=== PATIENT | male | born 1965 | race African-American/Black ===

== ENCOUNTER 2017-06-16 14:03 | Inpatient (IN) | payer SELFPAY ==
[~2017-06-16] VITALS: Ht 175.3 cm; Wt 139.3 kg
[2017-06-16] MEDS ORDERED: ASPIRIN 81MG TABLET PO STA (14:35)
[2017-06-16] MEDS ORDERED: MAGNESIUM/ALUMINUM HYDROXIDE/SIMETHICONE 30ML UDC PO STA (14:35)
[2017-06-16] MEDS ORDERED: ONDANSETRON HCL 4MG/2ML VIAL IV STA (14:35)
[2017-06-16] MEDS ORDERED: FAMOTIDINE 20MG/2ML VIAL IV ONE (14:45)
[2017-06-16 15:21] LABS: BASOPHILS % 1.2 % (0.0-2.0); EOSINOPHILS % 1.2 % (0.0-5.0); HEMATOCRIT. 47.6 % (42.0-52.0); HEMOGLOBIN. 16.7 g/dL (14.0-18.0); LYMPHOCYTES % 14.1 % (20.0-50.0); MEAN CORPUSCULAR VOLUME 85.3 fL (80.0-94.0); MEAN PLATELET VOLUME 7.4 fl (7.4-10.4); MONOCYTES % 6.1 % (2.0-8.0); NEUTROPHILS % 77.4 % (40.0-76.0); PLATELET 293 x1000/uL (130-400); RED BLOOD CELL COUNT 5.58 mill/uL (4.7-6.1); RED CELL DISTRIBUTION WIDTH 13.1 % (11.6-14.6)
[2017-06-16 15:25] LABS: CHLORIDE 109 mEq/L (98-107)
[2017-06-16 15:29] LABS: D-DIMER < 0.19 mg/L FEU (<0.50); PARTIAL THROMBOPLASTIN TIME 27.6 sec (23.4-31.0); PROTHROMBIN TIME 10.6 sec (9.4-11.6)
[2017-06-16] MEDS ORDERED: ACETAMINOPHEN 325MG TABLET PO PRN (16:30)
[2017-06-16] MEDS ORDERED: IPRATROPIUM/ALBUTEROL 0.5-3(2.5)MG/3ML NEB INH PRN (16:30)
[2017-06-16] MEDS ORDERED: DOCUSATE SODIUM 100MG CAPSULE PO PRN (16:30)
[2017-06-16] MEDS ORDERED: GUAIFENESIN 200MG/10ML SUGAR FREE UDC PO PRN (16:30)
[2017-06-16] MEDS ORDERED: CLONIDINE 0.1MG TABLET PO PRN (16:30)
[2017-06-16] MEDS ORDERED: DIPHENHYDRAMINE 50MG/ML VIAL IV PRN (16:30)
[2017-06-16] MEDS ORDERED: MAGNESIUM/ALUMINUM HYDROXIDE/SIMETHICONE 30ML UDC PO PRN (16:30)
[2017-06-16] MEDS ORDERED: ONDANSETRON HCL 4MG/2ML VIAL IV PRN (16:30)
[2017-06-16] MEDS ORDERED: LORAZEPAM 0.5MG TABLET PO PRN (16:30)
[2017-06-16] MEDS ORDERED: ENOXAPARIN 40MG/0.4ML SYR SUBCUT SCH (16:30)
[2017-06-16] MEDS ORDERED: SUCRALFATE 1 G/10 ML UDC PO SCH (17:00)
[2017-06-16] MEDS ORDERED: KETOROLAC 15MG/ML VIAL IV PRN (17:16)
[2017-06-16] MEDS ORDERED: SODIUM CHLORIDE 0.9% 500 ML IV ONE (17:57)
[2017-06-16 18:20] LABS: *AMPHETAMINES SCREEN URINE NEGATIVE (NEGATIVE); *BARBITURATES SCREEN URINE NEGATIVE (NEGATIVE); CANNABINOID URINE SCREEN NEGATIVE (NEGATIVE); PHENCYCLIDINE URINE SCREEN NEGATIVE (NEGATIVE)
[2017-06-16 18:21] LABS: *BENZODIAZEPINES SCREEN URINE NEGATIVE (NEGATIVE); *COCAINE SCREEN URINE NEGATIVE (NEGATIVE); METHADONE URINE SCREEN NEGATIVE (NEGATIVE); OPIATES URINE SCREEN NEGATIVE (NEGATIVE)
[2017-06-16 20:15] VITALS: BP 129/81
[2017-06-16 21:00] VITALS: BP 129/81
[2017-06-16] MEDS ORDERED: ZOLPIDEM TARTRATE 5MG TABLET PO PRN (21:00)
[2017-06-16] MEDS ORDERED: NA PHOS,M-B/NA PHOS,DI-BA ENEMA 118ML PR PRN (21:00)
[2017-06-16] MEDS: FAMOTIDINE 20MG TABLET PO SCH (21:50)
[2017-06-16] MEDS: SUCRALFATE 1 G/10 ML UDC PO SCH (21:50)
[2017-06-16] MEDS: ENOXAPARIN 30MG/0.3ML SYR SUBCUT SCH (21:51)
[2017-06-16 23:40] LABS: CREATINE KINASE 74 IU/L (39-308)
[2017-06-16 23:41] LABS: CREATINE KINASE MB FRACTION 0.9 ng/mL (0.5-3.6)
[2017-06-17] VITALS: BP 114/62
[2017-06-17 04:00] VITALS: BP 113/58
[2017-06-17] MEDS: SUCRALFATE 1 G/10 ML UDC PO SCH ×2 (05:56→12:28)
[2017-06-17 06:54] LABS: CREATINE KINASE 72 IU/L (39-308)
[2017-06-17 06:55] LABS: CREATINE KINASE MB FRACTION 0.6 ng/mL (0.5-3.6)
[2017-06-17 08:00] VITALS: BP 122/78
[2017-06-17] MEDS ORDERED: ASPIRIN 325MG EC TABLET PO SCH (09:00)
[2017-06-17] MEDS: ENOXAPARIN 30MG/0.3ML SYR SUBCUT SCH (09:28)
[2017-06-17] MEDS: FAMOTIDINE 20MG TABLET PO SCH (09:28)
[2017-06-17 13:22] VITALS: BP 112/72
== END 2017-06-17 14:10 | disposition home or self-care (01) | DRG 243 ==
LOC: ER 14:47 → 5WST 15:52 → EDBEDREQ 15:55 → ENRESERV 19:21
PROVIDERS: ADMIT Internal Medicine; ATTEND Internal Medicine
DX: K21.9 Gastro-esophageal reflux disease without esophagitis (principal); Z68.42 Body mass index [BMI] 45.0-49.9, adult; E66.9 Obesity, unspecified; J45.909 Unspecified asthma, uncomplicated
CPT/HCPCS: 36415; 71045; 80053; 80061; 80305; 82550; 82553; 83036; 83690; 84484; 85025; 85379; 85610; 85730; 93005; 93970; J1650; J3490; J7040